=== PATIENT | female | born 1965 | race Hispanic/Latino ===

== ENCOUNTER 2017-05-09 16:13 | Emergency (ER) | payer SELFPAY ==
[2017-05-09] MEDS ORDERED: Dexamethasone 10 MG/ML VIAL ONE (17:39)
== END 2017-05-09 17:45 | disposition home or self-care (01) ==
LOC: ERS 16:13
DX: B34.9 Viral infection, unspecified (principal)
CPT/HCPCS: 99283; J1100

== ENCOUNTER 2018-10-17 17:57 | Emergency (ER) | payer SELFPAY | END 2018-10-17 18:19 | disposition home or self-care (01) | LOC: ERS 17:57 | DX: M25.512 Pain in left shoulder (principal); D64.9 Anemia, unspecified | CPT/HCPCS: 93005; 94760 ==

== ENCOUNTER 2024-03-23 03:22 | Emergency (ER) | payer BC, SELFPAY ==
[2024-03-23 04:22] LABS: #Basophils 0.04 10x3/uL (0.0-0.2); %Basophils 0.8 % (0.0-1.0); %Eosinophils 2.6 % (0.0-10.0); %Lymphocytes 39.1 % (21.0-51.0); %Monocytes 6.7 % (0.0-10.0); %Neutrophils 50.6 % (42.0-75.0); Hematocrit 38.5 % (36.0-47.0); Hemoglobin 12.5 g/dL (12.0-16.0); Mean Corpuscular HGB CONC 32.5 g/dL (32.0-36.0); Mean Corpuscular Volume 92.5 fL (78.0-98.0); Mean Platelet Volume 11.7 fL (7.4-10.4); Platelet Count 187 10x3/uL (130-400); RBC Distribution Width 13.4 % (11.5-14.5); Red Blood Cell (RBC) Count 4.16 mill/uL (4.20-5.40)
[2024-03-23 04:31] LABS: INR-International Normal Ratio 1.1; PTT 31.3 sec (22.9-36.1); Prothrombin Time 13.7 sec (12.0-14.7)
[2024-03-23 04:37] LABS: ALT (SGPT) 13 U/L (8-55); AST (SGOT) 14 U/L (5-34); Albumin 3.8 g/dL (3.5-5.0); Alkaline Phosphatase 56 U/L (40-110); Anion Gap 12 mmol/L (10-20); BUN (Urea Nitrogen) 12 mg/dL (9.8-20.1); Bilirubin, Total 0.4 mg/dL (0.2-1.2); Calc. Creatinine Clearance 0 mL/min (70-130); Calcium 9.4 mg/dL (7.8-10.44); Carbon Dioxide 24 mmol/L (22-29); Chloride 109 mmol/L (98-107); Estimated GFR 104; Globulin 2.9 g/dL (2.4-3.5); Glucose 117 mg/dL (70-105); Potassium 4.3 mmol/L (3.5-5.1); Protein, Total 6.7 g/dL (6.0-8.3); Sodium 141 mmol/L (136-145)
== END 2024-03-23 05:42 | disposition home or self-care (01) ==
LOC: ERS 03:22
DX: I83.812 Varicose veins of left lower extremity with pain (principal)
CPT/HCPCS: 36415; 80053; 85025; 85610; 85730

== ENCOUNTER 2024-12-22 12:12 | Emergency (ER) | payer SELFPAY ==
[2024-12-22 13:45] LABS: #Basophils 0.06 10x3/uL (0.0-0.2); #Eosinophils 0.12 10x3/uL (0.0-0.7); #Monocytes 0.45 10x3/uL (0.11-0.59); #Neutrophils 4.25 10x3/uL (1.40-6.50); %Basophils 0.8 % (0.0-1.0); %Eosinophils 1.7 % (0.0-10.0); %Lymphocytes 30.8 % (21.0-51.0); %Monocytes 6.4 % (0.0-10.0); %Neutrophils 60.0 % (42.0-75.0); Hematocrit 40.5 % (36.0-47.0); Hemoglobin 13.4 g/dL (12.0-16.0); Mean Corpuscular Hemoglobin 30.0 pg (27.0-31.0); Mean Corpuscular Volume 90.8 fL (78.0-98.0); Platelet Count 197 10x3/uL (130-400); Red Blood Cell (RBC) Count 4.46 mill/uL (4.20-5.40); White Blood Cell (WBC) Count 7.08 10x3/uL (4.8-10.8)
[2024-12-22 14:02] LABS: ALT (SGPT) 24 U/L (Less than 34); AST (SGOT) 28 U/L (11-34); Albumin 4.1 g/dL (3.1-4.5); Alkaline Phosphatase 71 U/L (40-110); Anion Gap 10 mmol/L (10-20); BUN (Urea Nitrogen) 9 mg/dL (9.8-20.1); Bilirubin, Total 0.3 mg/dL (0.3-1.2); Calc. Creatinine Clearance 0 mL/min (70-130); Calcium 9.5 mg/dL (7.8-10.44); Carbon Dioxide 29 mmol/L (22-29); Chloride 105 mmol/L (98-107); Globulin 3.0 g/dL (2.4-3.5); Glucose 94 mg/dL (70-105); Potassium 4.5 mmol/L (3.5-5.1); Sodium 139 mmol/L (136-145)
[2024-12-22] MEDS ORDERED: Ketorolac Tromethamine 30 MG (1 mL) VIAL ONE (14:28)
[2024-12-22] MEDS ORDERED: diphenhydrAMINE 50 MG/ML VIAL ONE (14:28)
[2024-12-22] MEDS ORDERED: Acetaminophen 500 MG TAB ONE (14:28)
[2024-12-22] MEDS ORDERED: Metoclopramide HCl 10 MG (2 mL) VIAL ONE (14:28)
== END 2024-12-22 15:50 | disposition home or self-care (01) ==
LOC: ERS 12:12
DX: J11.1 Influenza due to unidentified influenza virus with other respiratory manifestations (principal)
CPT/HCPCS: 80053; 84443; 85025; 87428; 96365; 96375; J1200; J1885; J2765